=== PATIENT | male | born 1955 | race American Indian/Alaskan Native ===

== ENCOUNTER 2017-02-19 05:52 | Day surgery (SDC) | payer MEDICARE ==
[2017-02-19] MEDS ORDERED: NACL 0.9% 1000 ML 1,000 ML IV SCH (06:00)
[2017-02-19] MEDS ORDERED: PEPCID PO NR (06:00)
[2017-02-19] MEDS ORDERED: VERSED IV NR (06:00)
[2017-02-19] MEDS ORDERED: ANCEF/STERILE WATER 2 GM/20 ML 2 GM/20 ML SYRINGE IV NR (06:00)
[2017-02-19] MEDS ORDERED: NACL BACTERIOSTATIC INFILTRATI ONE (07:08)
[2017-02-19] MEDS ORDERED: ZOFRAN IV PRN (07:29)
[2017-02-19] MEDS ORDERED: DILAUDID IV PRN (07:29)
--- NOTE | 2017-02-19 07:34 | Anesthesia Day of Surgery ---
Anesthesia Day of Surgery - Day of Surgery Patient Examined: Yes Patient H&P Reviewed: Yes Patient is NPO: Yes
--- NOTE | 2017-02-19 07:34 | Anesthesia Consultation ---
Anesthesia Consult and Med Hx Date of service: 02/19/17 - Airway Anesthetic Teeth Evaluation: Good ROM Head & Neck: Adequate Mental/Hyoid Distance: Adequate Mallampati Class: Class II Intubation Access Assessment: Probably Good - Pulmonary Exam CTA: Yes - Cardiac Exam Cardiac Exam: RRR - Pre-Operative Health Status ASA Pre-Surgery Classification: ASA3 Proposed Anesthetic Plan: General - Pulmonary Hx Smoking: Yes (STOPPED X 10 YRS-1/2 PPD X 10 YRS) Hx Asthma: Yes (INHALERS PRN) Hx Sleep Apnea: Yes (DX SLEEP APNEA WITH CPAP USE) - Cardiovascular System Hx Hypertension: Yes (X 10 YRS) - Central Nervous System CVA: Yes (2006- NO DEFICIT) - Endocrine Hx Hypothyroidism: Yes (ON MEDS) - Other Systems Hx Cancer: No - Additional Comments Anesthesia Medical History Comments: Gout
[2017-02-19] MEDS ORDERED: DIPRIVAN 10 MG/ML IV ONE (07:44)
[2017-02-19] MEDS ORDERED: XYLOCAINE MPF 2% ONE (07:44)
[2017-02-19] MEDS ORDERED: SUBLIMAZE ONE (07:44)
[2017-02-19] MEDS ORDERED: DECADRON ONE (07:44)
[2017-02-19] MEDS ORDERED: MARCAINE 0.25% INFILTRATI ONE ×2 (07:46→09:16)
[2017-02-19] MEDS ORDERED: XYLOCAINE 1% 20 mL ONE (07:47)
[2017-02-19] MEDS ORDERED: DILAUDID ONE (08:57)
[2017-02-19] MEDS ORDERED: XYLOCAINE 1% 20 mL INFILTRATI ONE (09:16)
[2017-02-19] MEDS ORDERED: WATER FOR IRRIG STERILE IR ONE ×2 (09:16)
--- NOTE | 2017-02-19 09:41 | XRay Report ---
SUPINE KUB: The abdominal gas pattern is unremarkable. No masses or organomegaly is identified and there is no gross evidence of free air or fluid. No significant soft tissue calcifications are noted. IMPRESSION: Normal study.
--- NOTE | 2017-02-19 10:10 | Post Operative Note ---
Date of procedure: 02/19/17 Pre-op diagnosis: L scrotal mass .. stricture Post-op diagnosis: same Findings: as above Procedure: L spermatocelectomy cysto dviu Anesthesia: GETA Surgeon: JEFE ALEJANDRA Estimated blood loss: minimal Pathology: list (spermatocl;e) Specimen disposition: to lab Condition: stable Disposition: PACU
--- NOTE | 2017-02-19 10:11 | Discharge Summary ---
Short Stay Discharge Plan Activity: other (no liftiong or strainijng ) Weight Bearing Status: Full Weight Bearing Diet: low fat, low cholesterol, low salt Wound: change dressing (ice packs in rr ) Special Instructions: other (inc fluids ) Durable Medical Equipment Needed Upon Discharge: other (hole wiith levin and drain ) Follow up with: JOCELYN MEDINA MD [Primary Care Provider] - 02/23/17
[2017-02-19] MEDS ORDERED: TORADOL IV ONE (11:42)
[2017-02-19] MEDS ORDERED: NORCO 5/325 PO ONE (11:43)
--- NOTE | 2017-02-19 12:03 | Post Anesthesia Evaluation ---
- Post Anesthesia Evaluation Patient Participated: Yes Airway Patent: Yes Stable Respiratory Function: Yes Nausea/Vomiting: No Temp > 96.8F: Yes Pain Manageable: Yes Adequeate Hydration: Yes Anesthesia Complications: No Block Receding Appropriately: Not Applicable Patient on Ventilator: No
[2017-02-19 12:54] VITALS: BP 150/66
--- NOTE | 2017-02-19 16:35 | Operative Report ---
PREOPERATIVE DIAGNOSES: Urethral stricture and large left spermatocele. POSTOPERATIVE DIAGNOSES: Urethral stricture and large left spermatocele. PROCEDURE: Cystoscopy, direct vision internal urethrotomy left spermatocelectomy. SURGEON: Bobby Osborn MD ANESTHESIA: General. FINDINGS: This is a gentleman with difficulty voiding had a bad stricture was also found to have a large left scrotal mass. He now presents for excision. DESCRIPTION OF PROCEDURE: The patient brought to the operating room and placed on the table. Following induction of anesthesia, placed in the lithotomy position, prepped and draped in usual sterile fashion. Cystourethroscopy showed 1 cm stricture in the bulbous urethra. This did not bleed. We incised at the 12 o'clock position and got to the membranous urethra, which was normal as was the prostatic urethra. He had some mild prostatic enlargement. Bladder was well visualized 2-3+ trabeculation. The patient tolerated the procedure well. A wire was inserted prior to the DVIU and with the wire, we placed a 20-[place] catheter. No bleeding was noted. The catheter was taped up and then he was placed in the supine position, prepped and draped in usual sterile fashion. An oblique incision was made over the left hemiscrotum and carried through the skin, multiple scrotal fascial layers. Once we got down to the tunica vaginalis, this was opened. There was a small hydrocele. There was a large left spermatocele approximately almost two times of the size of the testicle. This was dissected free, we had a relatively broad base, but the entire epididymis wrapped in the center of it. Once we dissected the posterior aspect of this spermatocele, the epididymis was isolated and partially resected. It was suture ligated. Because the base was so wide, we opened up the spermatocele, evacuated out about 60-70 mL of fluid and we excised the mass. Throughout the procedure, small vessels were cauterized, were tied with 3-0 Vicryl. Wound was copiously irrigated. At this point, the testis was placed in its anatomical position after a quarter inch [place] was placed in the dependent portion of the scrotum and secured with a silk. The scrotal fascia was approximated with 3-0 chromic, skin with interrupted 3-0 chromic. The patient tolerated the procedure well and brought to recovery in stable condition. [facility]# [id number] ANA/MALINA
== END 2017-02-19 12:45 | disposition home or self-care (01) ==
LOC: OR 05:52
PROVIDERS: ATTEND Urology
DX: N35.9 Urethral stricture, unspecified (principal); N43.41 Spermatocele of epididymis, single; N43.3 Hydrocele, unspecified; N40.0 Benign prostatic hyperplasia without lower urinary tract symptoms; N32.89 Other specified disorders of bladder; G47.30 Sleep apnea, unspecified; E78.00 Pure hypercholesterolemia, unspecified; I10 Essential (primary) hypertension; J45.909 Unspecified asthma, uncomplicated; M10.9 Gout, unspecified; E03.9 Hypothyroidism, unspecified; E66.9 Obesity, unspecified; Z68.39 Body mass index [BMI] 39.0-39.9, adult; Z98.890 Other specified postprocedural states; Z79.899 Other long term (current) drug therapy; Z86.73 Personal history of transient ischemic attack (TIA), and cerebral infarction without residual deficits; Z87.891 Personal history of nicotine dependence; Z82.49 Family history of ischemic heart disease and other diseases of the circulatory system; Z83.3 Family history of diabetes mellitus; Z80.9 Family history of malignant neoplasm, unspecified
CPT/HCPCS: 36415; 52276; 54840; 74000; 84132; 88304; A4217; C1769; J0690; J1100; J1170; J1885; J2250; J2405; J2704; J3010; J7030; Q9967